=== PATIENT | female | born 1955 ===

== ENCOUNTER 2020-06-22 08:00 | Inpatient (IN) | payer OTHER ==
[~2020-06-22] VITALS: Ht 154.9 cm; Wt 80.3 kg
[2020-06-23] MEDS ORDERED: COZAAR100 MG PO (08:58)
[2020-06-23] MEDS ORDERED: METFORMIN HCL500 M3 PO (08:58)
[2020-06-23] MEDS ORDERED: TENORMIN50 M1 PO (08:58)
[2020-06-23] MEDS ORDERED: ADULT LOW DOSE81 M1 PO (08:59)
[2020-06-23] MEDS ORDERED: HYDROCHLOROTHIA25 MG PO (08:59)
[2020-06-23] MEDS ORDERED: TRENTAL PO (09:00)
[2020-06-23] MEDS ORDERED: NIFEDIPINE20 MG PO (09:00)
[2020-06-23] MEDS ORDERED: ZOCOR20 MG PO (09:00)
[2020-06-23] MEDS ORDERED: GABAPENTIN800 M1 PO (09:01)
[2020-06-29] MEDS ORDERED: VITAMIN D3125 MC1 (09:55)
[2020-06-29] MEDS ORDERED: PANTOPRAZOLE SO40 MG (09:55)
[2020-06-29] MEDS ORDERED: PENTOXIFYLLINE400 MG (09:56)
[2020-06-29] MEDS ORDERED: OMEPRAZOLE20 MG (09:56)
[2020-06-29] MEDS ORDERED: CLOTRIMAZOLE-BE15 G1 (09:56)
[2020-06-29] MEDS ORDERED: SUCRALFATE1 GM/10 ML (09:56)
== END 2020-06-30 09:54 | disposition home or self-care (01) | DRG 741 ==
LOC: O/R 06-29 06:02 → OB/GYN 06-29 06:02 → SURH 06-29 07:30 → OB/GYN 06-29 13:57
PROVIDERS: ADMIT Obstetrics & Gynecology Gynecologic Oncology; ATTEND Obstetrics & Gynecology Gynecologic Oncology
PROC: 0UT24ZZ Resection of Bilateral Ovaries, Percutaneous Endoscopic Approach (ICD-10-PCS; 2020-06-29)
PROC: 07BC4ZX Excision of Pelvis Lymphatic, Percutaneous Endoscopic Approach, Diagnostic (ICD-10-PCS; 2020-06-29)
PROC: 0UT94ZZ Resection of Uterus, Percutaneous Endoscopic Approach (ICD-10-PCS; principal; 2020-06-29 08:45)
DX: C54.1 Malignant neoplasm of endometrium (principal); I10 Essential (primary) hypertension; E11.9 Type 2 diabetes mellitus without complications